=== PATIENT | female | born 1990 | race Caucasian/White ===

== ENCOUNTER → 2020-08-22 | Outpatient (CLI) | payer OTHER ==
[~2020-08-22] MED LIST: BENTYL 20MG TAB20 MG PO; COLACE 100MG C100 MG PO; FLEXERIL 10 MG10 MG PO; IBUPROFEN600 MG PO; NAPROXEN500 MG PO; ROBAXIN500 MG PO; VOLTAREN EC 5050 MG PO; ZOFRAN4 MG PO
== END ==
LOC: RAD 12:14
DX: M54.2 Cervicalgia (principal)
CPT/HCPCS: 72040

== ENCOUNTER → 2020-09-16 | Outpatient (CLI) | payer OTHER | LOC: MRI 10:05 | DX: M54.2 Cervicalgia (principal); M50.322 Other cervical disc degeneration at C5-C6 level; M48.02 Spinal stenosis, cervical region | CPT/HCPCS: 72141 ==

== ENCOUNTER 2020-12-24 15:25 | Emergency (ER) | payer OTHER ==
[2020-12-24 16:01] LABS: HEMOGLOBIN 13.7 gm/dl (12.3-15.3); RED BLOOD COUNT 4.78 M/UL (4.00-5.10); WHITE BLOOD COUNT 6.4 K/UL (4.5-11.0)
[2020-12-24 16:16] LABS: BUN/CREATININE RATIO 12 (0-10)
== END 2020-12-24 17:24 | disposition left against medical advice (07) ==
LOC: ER1 15:25
PROVIDERS: Emergency Medicine
DX: Z53.21 Procedure and treatment not carried out due to patient leaving prior to being seen by health care provider (principal)
CPT/HCPCS: 80053; 81001; 83690; 84703; 85025

== ENCOUNTER 2021-03-04 14:34 | Emergency (ER) | payer MEDICARE, OTHER | END 2021-03-04 15:40 | disposition home or self-care (01) | LOC: ER1 14:34 | DX: K62.5 Hemorrhage of anus and rectum (principal); R19.7 Diarrhea, unspecified | CPT/HCPCS: 99283 ==

== ENCOUNTER → 2021-04-24 | Day surgery (SDC) | payer MEDICARE, OTHER ==
[~2021-04-24] MED LIST changes: +WELLBUTRIN XL300 M1 PO; +ZOLOFT25 MG PO
[2021-04-25 08:13] LABS: THYROXINE (T4) 7.6 ug/dL (4.5-12.0)
== END | disposition home or self-care (01) ==
LOC: OR 06:37
PROVIDERS: Internal Medicine Gastroenterology
DX: K62.1 Rectal polyp (principal); K64.0 First degree hemorrhoids; K64.4 Residual hemorrhoidal skin tags; K59.00 Constipation, unspecified; G47.30 Sleep apnea, unspecified; F41.9 Anxiety disorder, unspecified; F43.10 Post-traumatic stress disorder, unspecified; Z88.8 Allergy status to other drugs, medicaments and biological substances; Z79.899 Other long term (current) drug therapy
CPT/HCPCS: 84436; 84443; 84480; 84703; J2704; J7040